=== PATIENT | female | born 1975 | race Caucasian/White ===

== ENCOUNTER 2018-06-27 10:04 | Outpatient (CLI) | payer OTHER | END 2018-06-27 10:15 | disposition home or self-care (01) | LOC: SONOGRAMA 10:04 | DX: E04.1 Nontoxic single thyroid nodule (principal) ==

== ENCOUNTER 2021-12-18 09:08 | Outpatient (CLI) | payer OTHER | END 2021-12-18 09:12 | disposition home or self-care (01) | LOC: SONOGRAMA 09:08 | PROVIDERS: ATTEND Pathology Anatomic Pathology & Clinical Pathology | DX: E04.1 Nontoxic single thyroid nodule (principal); D34 Benign neoplasm of thyroid gland; E04.9 Nontoxic goiter, unspecified ==